=== PATIENT | female | born 1955 | race Caucasian/White ===

== ENCOUNTER 2017-07-13 13:22 | Outpatient (CLI) | payer OTHER ==
--- NOTE | 2017-07-15 07:51 | Mammography Report ---
EXAM: DIGITAL BILATERAL SCREENING MAMMOGRAM: 07/13/2017 CLINICAL INDICATION: A 69-year-old, for screening. COMPARISON: 02/2016, 03/2015, 10/2013, 05/2012, 05/2011, 03/2010. TECHNIQUE: Routine CC and MLO projections were obtained of the breasts. FINDINGS: The breasts demonstrate scattered fibroglandular densities bilaterally. Coarse, typically benign calcifications are present. No suspicious masses, clustered microcalcifications, or regions of architectural distortion are identified. IMPRESSION: BENIGN FINDINGS. RECOMMENDATIONS: Routine annual screening unless otherwise clinically indicated. BIRADS CATEGORY 2-BENIGN FINDINGS. STANDARD QUALIFYING STATEMENTS: 1. This examination was reviewed with the aid of Computer-Aided Detection (CAD). 2. A negative or benign imaging report should not delay biopsy if clinically suspicious findings are present. Consider surgical consultation if warranted. More than 5% of cancers are not identified by imaging. 3. Dense breasts may obscure an underlying neoplasm. TD: 07/14/2017 16:24 [email or web address]
== END 2017-07-13 13:23 | disposition home or self-care (01) ==
LOC: DI 13:22
PROVIDERS: ATTEND Family Medicine
DX: Z12.31 Encounter for screening mammogram for malignant neoplasm of breast (principal)
CPT/HCPCS: 77067

== ENCOUNTER 2018-08-16 09:49 | Outpatient (CLI) | payer OTHER ==
--- NOTE | 2018-08-17 09:22 | Mammography Report ---
Reason: SCREENING MAMMO Procedure Date: 08/16/2018 Accession Number: [id number] / [id number] Procedure: YULIA - Screening Mammo w/Dhaval CPT Code: FULL RESULT: EXAM: Screening Mammo w/Dhaval DATE: 08/16/2018 11:09 AM CLINICAL HISTORY: Screening encounter. History of early menses. History of bilateral benign breast biopsy. TECHNIQUE: Bilateral CC and MLO views were obtained. A right laterally exaggerated view was obtained. COMPARISON: 07/13/2017 through 01/03/2013. FINDINGS: The breasts demonstrate scattered fibroglandular densities bilaterally. Postsurgical changes in the breasts are stable. No suspicious masses, clustered microcalcifications, or regions of architectural distortion are identified. IMPRESSION: Benign findings RECOMMENDATION: Routine annual screening unless otherwise clinically indicated. BIRADS CATEGORY 2: Benign findings STANDARD QUALIFYING STATEMENTS: 1. This examination was not reviewed with the aid of Computer-Aided Detection (CAD). 2. A negative or benign imaging report should not preclude biopsy if clinically suspicious findings are present. 3. Dense breasts may obscure an underlying neoplasm. 4. This examination was reviewed with the aid of 3D breast imaging (tomosynthesis).
== END 2018-08-16 09:50 | disposition home or self-care (01) ==
LOC: DI 09:49
DX: Z12.31 Encounter for screening mammogram for malignant neoplasm of breast (principal)
CPT/HCPCS: 77063; 77067

== ENCOUNTER 2018-11-29 10:39 | Outpatient (CLI) | payer OTHER ==
--- NOTE | 2018-11-29 14:57 | XRAY Report ---
Reason: FOOT PAIN,LEFT Procedure Date: 11/29/2018 Accession Number: [id number] / [id number] Procedure: WCP - Foot 3 View LT CPT Code: FULL RESULT: EXAM: LEFT FOOT RADIOGRAPHY EXAM DATE: 11/29/2018 11:00 AM. CLINICAL HISTORY: Pain along the fifth metatarsal. COMPARISON: None. TECHNIQUE: 3 views. FINDINGS: Bones: Orthopedic fixation hardware is seen along the distal fibula and distal tibia with no evidence of residual fracture. The fifth metatarsal appears intact. Joints: Normal. No subluxations. Soft Tissues: There is mild soft tissue swelling at the base of the fifth metatarsal. IMPRESSION: Soft tissue swelling in the base of the fifth metatarsal without osseous injury detected. RADIA
== END 2018-11-29 10:40 | disposition home or self-care (01) ==
LOC: DI.WCP 10:39
PROVIDERS: ATTEND Family Medicine
DX: M79.672 Pain in left foot (principal)

== ENCOUNTER 2019-12-22 10:45 | Outpatient (CLI) | payer MEDICARE, OTHER ==
--- NOTE | 2019-12-22 16:59 | XRAY Report ---
Reason: RIGHT ELBOW PAIN Procedure Date: 12/22/2019 Accession Number: [id number] / [id number] Procedure: WCP - Elbow 3 View RT CPT Code: Final Report FULL RESULT: EXAM: RIGHT ELBOW RADIOGRAPHY EXAM DATE: 12/22/2019 11:47 AM. CLINICAL HISTORY: RIGHT ELBOW PAIN. COMPARISON: None. TECHNIQUE: 3 views. FINDINGS: Bones: Nondisplaced intra-articular fracture extends through the radial head. The remainder osseous structures appear intact. Joints: Minor osteoarthritic changes are seen. No significant effusion. Soft Tissues: Normal. No soft tissue swelling. IMPRESSION: Nondisplaced intra-articular fracture of the radial head. Relative paucity of joint effusion may represent a subacute injury (greater than 3 days). RADIA
--- NOTE | 2019-12-22 16:59 | XRAY Report ---
Reason: RIGHT WRIST PAIN Procedure Date: 12/22/2019 Accession Number: [id number] / [id number] Procedure: WCP - Wrist 3 View RT CPT Code: Final Report FULL RESULT: EXAM: RIGHT WRIST RADIOGRAPHY EXAM DATE: 12/22/2019 11:47 AM. CLINICAL HISTORY: RIGHT wrist pain. COMPARISON: None. TECHNIQUE: 3 views. FINDINGS: Bones: Normal. No fractures or bone lesions. Joints: Minor marginal spurring and degenerative changes are seen in the first carpometacarpal and STT joints. Normal alignment. Soft Tissues: Normal. No soft tissue swelling. IMPRESSION: No acute findings. Minor osteoarthritic changes seen. RADIA
== END 2019-12-22 23:59 | disposition home or self-care (01) ==
LOC: DI.WCP 10:45
PROVIDERS: ATTEND Family Medicine
DX: S52.124A Nondisplaced fracture of head of right radius, initial encounter for closed fracture (principal); M19.031 Primary osteoarthritis, right wrist

== ENCOUNTER 2020-08-14 12:54 | Outpatient (CLI) | payer MEDICARE, OTHER ==
--- NOTE | 2020-08-14 14:56 | DEXA Report ---
PROCEDURE: Dexa Spine and/or Hip INDICATIONS: POST MENOPAUSAL TECHNIQUE: Dual energy x-ray absorptiometry (DXA) was performed on a THEMA System. Regions measur ed are the AP Spine, femoral neck, and if needed forearm. COMPARISON: Prior exam of 10/26/2007 cannot be compared secondary to technique differences. FINDINGS: Lumbar Spine: Bone Mineral Density 0.966 g/cm/cm,T score -1.7, moderate osteopenia Left Hip: Bone Mineral Density 0.685 g/cm/cm,T score -2.6, minimal osteoporosis Left Femoral Neck: Bone Mineral Density 0.72 g/cm/cm, T score -2.6, minimal osteoporosis (T score greater or equal to -1.0: NORMAL) (T score from -1.1 to -2.4: OSTEOPENIA) (T score less than or equal to -2.5 to: OSTEOPOROSIS) Impression: Minimal osteoporosis within the left hip and femoral neck. Patients with diagnosis of osteoporosis or osteopenia should have regular bone mineral density assess ment. For those eligible for Medicare, routine testing is allowed once every 2 years. Testing frequ ency can be increased for patients who have rapidly progressing disease or for those who are receivin g medical therapy to restore bone mass. Reviewed by: Flor Bella MD on 08/14/2020 2:55 PM PST Approved by: Flor Bella MD on 08/14/2020 2:55 PM PST Station ID: [id number]
== END 2020-08-14 12:55 | disposition home or self-care (01) ==
LOC: DI 12:54
PROVIDERS: ATTEND Family Medicine
DX: M81.0 Age-related osteoporosis without current pathological fracture (principal)

== ENCOUNTER 2020-08-14 12:58 | Outpatient (CLI) | payer MEDICARE, OTHER ==
--- NOTE | 2020-08-15 09:47 | Mammography Report ---
BILATERAL DIGITAL SCREENING MAMMOGRAM 3D/2D: 08/14/2020 CLINICAL: Routine screening. Comparison is made to exams dated: 08/16/2018 mammogram, 07/13/2017 mammogram, 04/28/2016 mammogram, mammogram, 01/03/2013 mammogram, and 02/04/2010 mammogram - [facility]. Ther e are scattered fibroglandular elements in both breasts. No significant masses, calcifications, or other findings are seen in either breast. There has been no significant interval change. IMPRESSION: NEGATIVE There is no mammographic evidence of malignancy. A 1 year screening mammogram is recommended. This exam was interpreted at Station ID: [id number]. NOTE: For mammograms, a report in lay terms will be sent to the patient. Approximately 15% of breast malignancies will not be visualized mammographically. In the management of a palpable breast mass, a negative mammogram must not discourage biopsy of a clinically suspicious lesion. Electronically Signed By: Haim acosta/geoff:08/14/2020 17:14:06 ACR BI-RADS Category 1: Negative 3341F PARENCHYMAL PATTERN: (A) - The breast(s) demonstrate(s) scattered fibroglandular densities. BI-RADS CATEGORY: (1) - 1 RECOMMENDATION: (ANNUAL) - Recommend routine annual screening mammography. [id number] 1 year screening LATERALITY: (B)
== END 2020-08-14 12:59 | disposition home or self-care (01) ==
LOC: DI 12:58
DX: Z12.31 Encounter for screening mammogram for malignant neoplasm of breast (principal)

== ENCOUNTER 2021-08-04 08:00 | Outpatient (CLI) | payer MEDICARE, OTHER ==
[2021-08-04 11:59] LABS: BILIRUBIN,URINE NEGATIVE (NEGATIVE); GLUCOSE, URINE (UA) NEGATIVE (NEGATIVE); KETONES,URINE (UA) NEGATIVE (NEGATIVE); LEUKOCYTE ESTERASE, URINE NEGATIVE (NEGATIVE); NITRITE,URINE NEGATIVE (NEGATIVE); OCCULT BLOOD,URINE NEGATIVE (NEGATIVE); PH,URINE 7.5 PH (5.0-7.5); PROTEIN,URINE NEGATIVE (NEGATIVE); UROBILINOGEN,URINE 0.2 (NORMAL) E.U./dL (NORMAL)
[2021-08-04 12:47] LABS: BACTERIA,URINE Moderate /HPF (None Seen); CLARITY,URINE CLEAR (CLEAR); MUCUS,URINE Marked Strands; RBC,URINE 3 /HPF (0-5); SQUAMOUS EPITHELIAL CELL,UR FEW Squamous (<= Few)
== END 2021-08-04 23:59 ==
LOC: LAB.WCP 08:00
PROVIDERS: ATTEND Nurse Practitioner
DX: N93.8 Other specified abnormal uterine and vaginal bleeding (principal)
CPT/HCPCS: 81001; 87086

== ENCOUNTER 2021-08-17 07:41 | Outpatient (CLI) | payer MEDICARE, OTHER ==
--- NOTE | 2021-08-17 11:05 | Ultrasound Report ---
PROCEDURE: Pelvic w/Transvaginal INDICATIONS: DUB TECHNIQUE: Real-time scanning was performed of the pelvic organs, with image documentation. Additional endovagi nal scanning was necessary due to incomplete visualization of the adnexal and endometrial structures by transabdominal scanning. COMPARISON: None. FINDINGS: No pathologic free abdominal or pelvic fluid. Uterus: Uterus is normal in size at 5.7 x 2.6 x 2.9 cm. The uterus is anteverted and heterogeneous. The endometrium measures 2 mm in combined thickness. There is moderate fluid can be seen within the lower uterine segment. Nabothian cysts are incidentally noted. Ovaries: The right ovary measures 1.5 x 1.2 x 2.6 cm, with a calculated volume of 2.3 cm. The left o vary is not seen. No adnexal masses are seen on either side. IMPRESSION: The endometrial stripe does not appear thickened in this patient with a given history of postmenopaus al bleeding. A small amount of fluid can be seen within the lower uterine segment. Reviewed by: Roel Fernández MD on 08/17/2021 10:04 AM [facility] Approved by: Roel Fernández MD on 08/17/2021 10:04 AM [facility] Station ID: [id number]
== END 2021-08-17 07:42 | disposition home or self-care (01) ==
LOC: DI 07:41
PROVIDERS: ATTEND Nurse Practitioner
DX: N93.8 Other specified abnormal uterine and vaginal bleeding (principal)

== ENCOUNTER 2022-04-06 15:06 | Outpatient (CLI) | payer MEDICARE, OTHER ==
--- NOTE | 2022-04-08 12:50 | Mammography Report ---
BILATERAL DIGITAL SCREENING MAMMOGRAM 3D/2D: 04/06/2022 CLINICAL: Routine screening. Comparison is made to exams dated: 08/14/2020 mammogram, 08/16/2018 mammogram, 07/13/2017 mammogram, mammogram, and 01/30/2014 mammogram - [facility]. There are scattered areas of fibroglandular density in both breasts (category b / 25%-50% glandular t issue). No significant masses, calcifications, or other findings are seen in either breast. There has been no significant interval change. IMPRESSION: NEGATIVE There is no mammographic evidence of malignancy. A 1 year screening mammogram is recommended. Based on the Tyrer Cuzick model (a risk assessment model) the patients lifetime risk is 5.7% and her 10 year risk is 3.0%. According to the ACR, ACS, and NCCN guidelines, an annual breast MRI exam teagan g with mammogram is recommended if the patients lifetime risk is 20% or greater. This exam was interpreted at Station ID: [id number]. NOTE: For mammograms, a report in lay terms will be sent to the patient. Approximately 15% of breast malignancies will not be visualized mammographically. In the management of a palpable breast mass, a negative mammogram must not discourage biopsy of a clinically suspicious lesion. Electronically Signed By: Tito najera/geoff:04/08/2022 09:09:47 ACR BI-RADS Category 1: Negative 3341F PARENCHYMAL PATTERN: (A) - The breast(s) demonstrate(s) scattered fibroglandular densities. BI-RADS CATEGORY: (1) - 1 RECOMMENDATION: (ANNUAL) - Recommend routine annual screening mammography. [id number] 1 year screening LATERALITY: (B)
== END 2022-04-06 15:07 | disposition home or self-care (01) ==
LOC: DI 15:06
DX: Z12.31 Encounter for screening mammogram for malignant neoplasm of breast (principal)

== ENCOUNTER 2022-06-30 07:41 | Outpatient (CLI) | payer MEDICARE, OTHER ==
[2022-06-30 12:10] LABS: BASOPHILS # (AUTO) 0.1 10^3/uL (0.0-0.1); EOSINOPHILS # (AUTO) 0.1 10^3/uL (0.0-0.7); HCT - HEMATOCRIT 42.1 % (37.0-47.0); HGB - HEMOGLOBIN 13.7 g/dL (12.0-16.0); LYMPHOCYTES % (AUTO) 38.1 %; MEAN CORPUSCULAR HEMOGLOBIN 29.9 pg (27.0-31.0); MEAN CORPUSCULAR HGB CONC 32.5 g/dL (32.0-36.0); MEAN CORPUSCULAR VOLUME 91.9 fL (81.0-99.0); MEAN PLATELET VOLUME 10.7 fL (7.9-10.8); MONOCYTES # (AUTO) 0.4 10^3/uL (0.0-1.0); MONOCYTES % (AUTO) 8.2 %; NEUTROPHILS # (AUTO) 2.7 10^3/uL (1.5-6.6); NEUTROPHILS % (AUTO) 51.5 %; PLT - PLATELET COUNT 273 10^3/uL (130-450); RED BLOOD COUNT 4.58 10^6/uL (4.20-5.40); RED CELL DISTRIBUTION WIDTH 13.2 % (12.0-15.0); WHITE BLOOD COUNT 5.2 x10^3/uL (4.8-10.8)
[2022-06-30 12:25] LABS: CALCIUM 9.4 mg/dL (8.5-10.3); CARBON DIOXIDE - CO2 27 mmol/L (21-32); CHLORIDE 103 mmol/L (101-111); GLUCOSE 93 mg/dL (70-100); POTASSIUM 4.2 mmol/L (3.5-5.0); SODIUM 140 mmol/L (135-145)
[2022-06-30 13:06] LABS: ALBUMIN/GLOBULIN RATIO 1.3 (1.0-2.2); ALKALINE PHOSPHATASE 39 IU/L (42-121); ALT ALANINE AMINOTRANSFERASE 28 IU/L (10-60); AST ASPARTATE AMINOTRANSFERASE 24 IU/L (10-42); BILIRUBIN,TOTAL 0.6 mg/dL (0.2-1.0); BUN - BLOOD UREA NITROGEN 26 mg/dL (6-20); CHOL/HDL RATIO 3.7 (<4.4); CHOLESTEROL 249 mg/dL; CREATININE 0.8 mg/dL (0.4-1.0); GFR - MDRD 72 (>89); HDL CHOLESTEROL 67 mg/dL; LDL CHOLESTEROL,CALCULATED 170 mg/dL; LDL/HDL RATIO 2.5 (<4.4); TRIGLYCERIDES 60 mg/dL; VLDL CHOLESTEROL 12 mg/dL
== END 2022-06-30 07:42 | disposition home or self-care (01) ==
LOC: LAB.N 07:41
PROVIDERS: ATTEND Nurse Practitioner
DX: R53.83 Other fatigue (principal); Z13.220 Encounter for screening for lipoid disorders
CPT/HCPCS: 36415; 80053; 80061; 83721; 85025

== ENCOUNTER 2023-03-30 08:48 | Emergency (ER) | payer MEDICARE, OTHER ==
--- NOTE | 2023-03-30 09:24 | ED Physician Documentation ---
PD HPI LOWER EXT INJURY - Stated complaint Stated Complaint: LT TOE PX - Chief complaint Chief Complaint: Trauma Ext - History obtained from History obtained from: Patient - History of Present Illness PD HPI LOW EXT INJURY LOCATION: Left, Toe Type of injury: Twist (walking andstubbed/twisted toe. Has hurt since.), Blunt / blow Timing - onset: How many weeks ago (2) Timing - duration: Weeks (2) Timing - details: Abrupt onset, Still present Review of Systems Skin: denies: Abrasion (s), Laceration (s) PD PAST MEDICAL HISTORY - Past Medical History Past Medical History: Yes Cardiovascular: None Respiratory: None Neuro: None Endocrine/Autoimmune: None GI: None [employer] DR[employer]: None : None HEENT: None Psych: Panic attacks Musculoskeletal: None Derm: None - Past Surgical History Past Surgical History: Yes General: Colonoscopy /[employer]IVER: section - Present Medications Home Medications: Ambulatory Orders Medication Instructions Recorded Confirmed Calcium [Calcio Edie] 500 mg PO BID 03/30/13 03/30/23 Loratadine [Claritin] 5 mg PO DAILY PRN 03/30/13 03/30/23 Multivitamin [Multivitamins] 1 each PO DAILY 03/30/13 03/30/23 Alendronate [Fosamax] 70 mg PO Q7D 02/11/23 03/30/23 Estradiol [Estrace] 1 gm VG ONCE 02/11/23 03/30/23 - Allergies Allergies/Adverse Reactions: Allergies Allergy/AdvReac Type Severity Reaction Status Date / Time Sulfa (Sulfonamide Allergy Intermediate Nausea Verified 03/30/23 08:53 Antibiotics) - Social History Does the pt smoke?: No Smoking Status: Never smoker Does the pt drink ETOH?: No Does the pt have substance abuse?: No - Immunizations Immunizations are current?: Yes PD ED PE NORMAL - Vitals Vital signs reviewed: Yes - General General: Alert and oriented X 3, No acute distress, Well developed/nourished - Extremities Extremities: Other (left great toe with enderness at IP are. No gross laxity on stress testing. xray without fracture. ) - Neuro Neuro: No motor deficit, No sensory deficit Results - Vitals Vitals: Vital Signs - 24 hr 03/30/23 03/30/23 08:53 10:16 Temperature 36.6 C Heart Rate 63 60 Respiratory 16 16 Rate Blood Pressure 139/71 H 91/76 O2 Saturation 99 100 Oxygen O2 Source Room air - Rads (name of study) right foot Relevant Findings:: Prelim report reviewed, EMP independent interpretation of test (no fractures) PD Medical Decision Making - ED course Complexity details: considered differential (injury toe 2 weeks ago and still hurting. Xray negative. ), d/w patient Departure - Departure Disposition: 01 Home, Self Care Clinical Impression: Sprain of toe Qualifiers: Encounter type: initial encounter Qualified Code(s): S93.509A - Unspecified sprain of unspecified toe(s), initial encounter Condition: Stable Record reviewed to determine appropriate education?: Yes Instructions: ED Sprain Toe Comments: Your x-ray appears normal to my eye. No signs of fractures. Presumably sprain/contused. It would not be unusual for it to hurt a few weeks at times if it sprained well. I would anticipate improvement over the next couple of weeks. Activity as tolerated. Continue with some Aleve or ibuprofen to 3 times daily with food. Follow-up if not fully improved in another couple of weeks. Forms: PCP List Discharge Date/Time: 03/30/23 10:18
[2023-03-30 10:22] VITALS: BP 91/76; O2SAT 100
--- NOTE | 2023-03-30 10:37 | XRAY Report ---
PROCEDURE: Foot 3 View LT INDICATIONS: Trauma TECHNIQUE: 3 views of the foot were acquired. COMPARISON: None. FINDINGS: Bones: No fractures or dislocations. No suspicious bony lesions. Postoperative changes of the med ial and lateral malleolus. Soft tissues: No suspicious soft tissue calcifications or masses. IMPRESSION: No acute bony abnormality. Reviewed by: Bharath Navarro on 03/30/2023 10:35 AM [facility] Approved by: Bharath Navarro on 03/30/2023 10:35 AM [facility] Station ID: [id number]
== END 2023-03-30 10:18 | disposition home or self-care (01) ==
LOC: ED 08:48
DX: S93.509A Unspecified sprain of unspecified toe(s), initial encounter (principal); X50.1XXA Overexertion from prolonged static or awkward postures, initial encounter; Y93.01 Activity, walking, marching and hiking
CPT/HCPCS: 99283

== ENCOUNTER 2023-06-08 08:18 | Outpatient (CLI) | payer MEDICARE, OTHER ==
--- NOTE | 2023-06-09 16:06 | Mammography Report ---
BILATERAL DIGITAL SCREENING MAMMOGRAM 3D/2D: 06/08/2023 CLINICAL: Routine screening. Comparison is made to exams dated: 04/06/2022 mammogram, 08/14/2020 mammogram, 08/16/2018 mammogram, an d 07/13/2017 mammogram - [facility]. There are scattered areas of fibroglandular density in both breasts (category b / 25%-50% glandular t issue). There are benign post operative findings in the left breast. No significant masses, calcifications, or other findings are seen in either breast. There has been no significant interval change. IMPRESSION: BENIGN There is no mammographic evidence of malignancy. A 1 year screening mammogram is recommended. Based on the Tyrer Cuzick model (a risk assessment model) the patients lifetime risk is 5.3% and her 10 year risk is 2.9%. According to the ACR, ACS, and NCCN guidelines, an annual breast MRI exam teagan g with mammogram is recommended if the patients lifetime risk is 20% or greater. This exam was interpreted at Station ID: [id number]. NOTE: For mammograms, a report in lay terms will be sent to the patient. Approximately 15% of breast malignancies will not be visualized mammographically. In the management of a palpable breast mass, a negative mammogram must not discourage biopsy of a clinically suspicious lesion. Electronically Signed By: Haim acosta/geoff:06/08/2023 18:02:03 letter sent: No_Letter ACR BI-RADS Category 2: Benign Finding(s) 3342F PARENCHYMAL PATTERN: (A) - The breast(s) demonstrate(s) scattered fibroglandular densities. BI-RADS CATEGORY: (2) - 2 Mammogram [id number] 1 year screening LATERALITY: (B)
== END 2023-06-08 08:19 | disposition home or self-care (01) ==
LOC: DI.N 08:18
PROVIDERS: ATTEND Nurse Practitioner
DX: Z12.31 Encounter for screening mammogram for malignant neoplasm of breast (principal); R92.323 Mammographic fibroglandular density, bilateral breasts

== ENCOUNTER 2023-07-08 08:12 | Outpatient (CLI) | payer MEDICARE, OTHER ==
--- NOTE | 2023-07-08 12:00 | DEXA Report ---
PROCEDURE: Dexa Spine and/or Hip INDICATIONS: POSTMENOPAUSAL TECHNIQUE: Dual energy x-ray absorptiometry (DXA) was performed on a [employer] System. Regions measur ed are the AP Spine, femoral neck, and if needed forearm. COMPARISON: None FINDINGS: Lumbar Spine (L1): Bone Mineral Density 1.081 g/cm/cm,T score -0.8. Normal. Left Femoral Neck: Bone Mineral Density 0.675 g/cm/cm, T score -2.6. Osteoporosis. Left Hip: Bone Mineral Density 0.713 g/cm/cm,T score -2.3. Osteopenia. (T score greater or equal to -1.0: NORMAL) (T score from -1.1 to -2.4: OSTEOPENIA) (T score less than or equal to -2.5 to: OSTEOPOROSIS) Impression: By WHO criteria, this patient has osteoporosis. Patients with diagnosis of osteoporosis or osteopenia should have regular bone mineral density assess ment. For those eligible for Medicare, routine testing is allowed once every 2 years. Testing frequ ency can be increased for patients who have rapidly progressing disease or for those who are receivin g medical therapy to restore bone mass. Reviewed by: Jose F Sandoval MD on 07/08/2023 11:59 AM PST Approved by: Jose F Sandoval MD on 07/08/2023 11:59 AM PST Station ID: [id number]
== END 2023-07-08 08:13 | disposition home or self-care (01) ==
LOC: DI 08:12
PROVIDERS: ATTEND Nurse Practitioner
DX: Z78.0 Asymptomatic menopausal state (principal); M81.0 Age-related osteoporosis without current pathological fracture

== ENCOUNTER 2023-11-11 08:09 | Outpatient (CLI) | payer MEDICARE, OTHER ==
[2023-11-11 12:10] LABS: BASOPHILS % (AUTO) 0.9 %; EOSINOPHILS % (AUTO) 0.9 %; HCT - HEMATOCRIT 40.2 % (37.0-47.0); HGB - HEMOGLOBIN 13.2 g/dL (12.0-16.0); LYMPHOCYTES # (AUTO) 1.2 10^3/uL (1.5-3.5); LYMPHOCYTES % (AUTO) 26.7 %; MEAN CORPUSCULAR HEMOGLOBIN 30.3 pg (27.0-31.0); MEAN CORPUSCULAR HGB CONC 32.8 g/dL (32.0-36.0); MEAN CORPUSCULAR VOLUME 92.2 fL (81.0-99.0); MEAN PLATELET VOLUME 10.5 fL (7.9-10.8); MONOCYTES # (AUTO) 0.4 10^3/uL (0.0-1.0); MONOCYTES % (AUTO) 8.5 %; NEUTROPHILS # (AUTO) 2.9 10^3/uL (1.5-6.6); NEUTROPHILS % (AUTO) 62.8 %; PLT - PLATELET COUNT 233 10^3/uL (130-450); RED BLOOD COUNT 4.36 10^6/uL (4.20-5.40); RED CELL DISTRIBUTION WIDTH 13.2 % (12.0-15.0); WHITE BLOOD COUNT 4.6 x10^3/uL (4.8-10.8)
[2023-11-11 12:21] LABS: BILIRUBIN,URINE NEGATIVE (NEGATIVE); GLUCOSE, URINE (UA) NEGATIVE (NEGATIVE); KETONES,URINE (UA) NEGATIVE (NEGATIVE); LEUKOCYTE ESTERASE, URINE NEGATIVE (NEGATIVE); NITRITE,URINE POSITIVE (NEGATIVE); OCCULT BLOOD,URINE NEGATIVE (NEGATIVE); PH,URINE 6.5 PH (5.0-7.5); PROTEIN,URINE NEGATIVE (NEGATIVE); UROBILINOGEN,URINE 0.2 (NORMAL) E.U./dL (NORMAL)
[2023-11-11 12:23] LABS: CLARITY,URINE CLEAR (CLEAR)
[2023-11-11 12:34] LABS: ALBUMIN 4.1 g/dL (3.2-5.5); ALBUMIN/GLOBULIN RATIO 1.5 (1.0-2.2); ALKALINE PHOSPHATASE 41 IU/L (42-121); ALT ALANINE AMINOTRANSFERASE 16 IU/L (10-60); AST ASPARTATE AMINOTRANSFERASE 19 IU/L (10-42); BILIRUBIN,TOTAL 0.4 mg/dL (0.2-1.0); BUN - BLOOD UREA NITROGEN 29 mg/dL (6-20); CALCIUM 9.8 mg/dL (8.5-10.3); CARBON DIOXIDE - CO2 31 mmol/L (21-32); CHLORIDE 106 mmol/L (101-111); CHOL/HDL RATIO 3.4 (<4.4); CHOLESTEROL 226 mg/dL; CREATININE 0.9 mg/dL (0.6-1.3); GFR - MDRD 62 (>89); GLUCOSE 85 mg/dL (74-104); HDL CHOLESTEROL 66 mg/dL; LDL CHOLESTEROL,CALCULATED 148 mg/dL; LDL/HDL RATIO 2.2 (<4.4); POTASSIUM 4.4 mmol/L (3.5-4.5); SODIUM 140 mmol/L (135-145); TOTAL PROTEIN 6.8 g/dL (6.4-8.9); TRIGLYCERIDES 59 mg/dL (48-352); VLDL CHOLESTEROL 12 mg/dL
[2023-11-11 12:41] LABS: BACTERIA,URINE Many /HPF (None Seen); RBC,URINE 0-5 /HPF (0-5); SQUAMOUS EPITHELIAL CELL,UR RARE Squamous (<= Few)
== END 2023-11-11 08:10 | disposition home or self-care (01) ==
LOC: LAB.N 08:09
PROVIDERS: ATTEND Nurse Practitioner
DX: R53.83 Other fatigue (principal); R39.11 Hesitancy of micturition; Z13.220 Encounter for screening for lipoid disorders
CPT/HCPCS: 36415; 80053; 80061; 81001; 83721; 85025; 87086

== ENCOUNTER 2023-11-29 15:40 | Outpatient (CLI) | payer MEDICARE, OTHER ==
--- NOTE | 2023-11-30 17:04 | Ultrasound Report ---
PROCEDURE: Pelvic w/Transvaginal INDICATIONS: PELVIC FLOOR INSTABILITY TECHNIQUE: Real-time scanning was performed of the pelvic organs, with image documentation. Additional endovagi nal scanning was necessary due to incomplete visualization of the adnexal and endometrial structures by transabdominal scanning. COMPARISON: Pelvic ultrasound 08/17/2021 FINDINGS: Uterus: Uterus is anteverted and normal in size at 6.7 x 2.5 x 3.3 cm. The endometrium measures 3 m m in combined thickness. Within the mid anterior subserosal region is a focus of heterogeneous echog enicity measuring 7 x 8 x 9 mm. Ovaries: The right ovary measures by 0.8 x 0.7 cm, with a calculated ovarian volume of 0.5 cc. The left ovary measures 4 x 0.9 x 0.7 cm, with a calculated ovarian volume of 0.4 cc. The ovaries have a normal sonographic appearance. Less than 12 follicles can be seen in each ovary. No adnexal masses are seen. No cystic lesions measuring greater than 3 cm. Other: No pathologic free abdominal or pelvic fluid. Mild prominence of the pelvic vasculature. IMPRESSION: 9 mm focus of echogenicity within the uterus suggestive of fibroid. Mild prominence of vasculature within the uterus/adnexa. Pelvic congestion syndrome cannot be exclude d. If this is, further evaluation with CT may be obtained. Reviewed by: Flor Bella MD on 11/30/2023 5:02 PM PDT Approved by: Flor Bella MD on 11/30/2023 5:02 PM PDT Station ID: [id number]
== END 2023-11-29 15:41 | disposition home or self-care (01) ==
LOC: DI 15:40
PROVIDERS: ATTEND Nurse Practitioner
DX: R39.11 Hesitancy of micturition (principal); N81.89 Other female genital prolapse